=== PATIENT | male | born 1990 | race Caucasian/White ===

== ENCOUNTER 2020-09-30 18:46 | Outpatient (CLI) | payer MEDICAID | END 2020-09-30 18:47 | disposition critical access hospital (66) | LOC: EMS 18:46 | PROVIDERS: ATTEND Emergency Medicine | DX: R40.4 Transient alteration of awareness (principal) | CPT/HCPCS: A0425; A0427; A0999 ==

== ENCOUNTER 2020-09-30 19:05 | Emergency (ER) | payer MEDICAID ==
[2020-09-30] MEDS ORDERED: ONDANSETRON 4 MG/2 ML VIAL IVP STA (19:19)
[2020-09-30] MEDS ORDERED: KETOROLAC 30 MG/ML VIAL IVP STA (19:19)
--- NOTE | 2020-09-30 19:21 | ED Physician Documentation ---
History of Present Illness - Stated complaint Stated Complaint: OD/ N/V - Chief complaint Chief Complaint: Abd Pain - History obtained from History obtained from: Patient - Additonal information Additional information: Snorted some morphine/fentanyl tongith and O/Ded. Went unconscious. Given narcan and awoke with headahce and nausea. Feeling improved now, but not all the way better. Review of Systems Ten Systems: 10 systems reviewed and negative Constitutional: reports: Reviewed and negative Throat: reports: Reviewed and negative Cardiac: reports: Reviewed and negative Respiratory: reports: Reviewed and negative PD PAST MEDICAL HISTORY - Present Medications Home Medications: Ambulatory Orders Medication Instructions Recorded Confirmed Naloxone HCl [Narcan] 4 mg NS ONCE PRN #2 spray 09/30/20 - Allergies Allergies/Adverse Reactions: Allergies Allergy/AdvReac Type Severity Reaction Status Date / Time No Known Drug Allergies Allergy Verified 09/30/20 19:11 PD ED PE NORMAL - Vitals Vital signs reviewed: Yes - General General: Alert and oriented X 3, No acute distress - HEENT HEENT: PERRL, EOMI - Neck Neck: Supple, no meningeal sign, No bony TTP - Neuro Neuro: Alert and oriented X 3, 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 Thankfully without ill effect of the seriousness. He was observed for an hour without diminution of his mental status. Departure - Departure Disposition: 01 Home, Self Care Clinical Impression: Narcotic overdose Qualifiers: Encounter type: initial encounter Injury intent: accidental or unintentional Qualified Code(s): T40.601A - Poisoning by unspecified narcotics, accidental (unintentional), initial encounter Condition: Good Record reviewed to determine appropriate education?: Yes Instructions: ED Overdose Opiate Prescriptions: Naloxone HCl [Narcan] 4 mg NS ONCE PRN #2 spray PRN Reason: narcotic overdose Comments: Call your doctor to arrange a follow-up appointment, make the next available appointment. In the interim, return anytime if worse or if new symptoms develop.
[2020-09-30 20:25] VITALS: BP 113/85
== END 2020-09-30 20:27 | disposition home or self-care (01) ==
LOC: EDUNIT# → EDBD → ED 19:05
DX: T40.2X1A Poisoning by other opioids, accidental (unintentional), initial encounter (principal); T40.411A Poisoning by fentanyl or fentanyl analogs, accidental (unintentional), initial encounter; R40.20 Unspecified coma
CPT/HCPCS: 96374; 96375; 99284